=== PATIENT | male | born 2000 | race Caucasian/White ===

== ENCOUNTER 2018-06-08 06:05 | Day surgery (SDC) | payer BC ==
[~2018-06-08 06:05] MED LIST: CEFAZOLIN 2 GM/50 ML (PMX) 50 ML IVPB
[2018-06-08] MEDS ORDERED: DESFLURANE 15 MIN (07:00)
[2018-06-08] MEDS ORDERED: FENTAnyl 50 MCG/ML VIAL (07:28)
[2018-06-08] MEDS ORDERED: DIPHENHYDRAMINE 50 MG INJ IV (07:30)
[2018-06-08] MEDS ORDERED: FENTAnyl 50 MCG/ML VIAL IV ×2 (07:30)
[2018-06-08] MEDS ORDERED: MEPERIDINE 25 MG INJ IV (07:30)
[2018-06-08] MEDS ORDERED: METOCLOPRAMIDE 10 MG INJ IV (07:30)
[2018-06-08] MEDS ORDERED: ALBUTEROL 0.083% (NEB) 2.5 MG/3 ML AMP HHN (07:30)
[2018-06-08] MEDS ORDERED: HYDROmorphONE 1 MG/5 ML IV SYRINGE IV ×3 (07:30)
[2018-06-08] MEDS: BUPIVACAINE 0.5% (SDV) 30 ML INJ (08:13)
[2018-06-08] MEDS ORDERED: LIDOCAINE 100 MG SYRINGE (08:20)
[2018-06-08] MEDS ORDERED: NEOSTIGMINE 3 MG/3 ML SYRINGE (08:20)
[2018-06-08] MEDS ORDERED: GLYCOPYRROLATE 0.4 MG INJ (08:20)
[2018-06-08] MEDS ORDERED: ROCURONIUM 50 MG INJ (08:20)
[2018-06-08] MEDS ORDERED: PROPOFOL 20 ML (08:20)
[2018-06-08] MEDS ORDERED: SUCCINYLCHOLINE CHLORIDE 100 MG/5 ML SYG IV (08:20)
[2018-06-08] MEDS ORDERED: CEFAZOLIN 1 GM INJ (08:20)
[2018-06-08] MEDS ORDERED: BACITRACIN/POLYMYXIN 28.35 GM OINT TOP (08:27)
[2018-06-08] MEDS: NEOMYC/POLYMYX/BACIT 30 GM OINT (08:41)
[2018-06-08] MEDS: ONDANSETRON 4 MG INJ IV (09:38)
[2018-06-08] MEDS: HYDROCODONE/APAP (5/325) TAB PO (09:40)
== END 2018-06-08 10:31 | disposition home or self-care (01) ==
LOC: SDS 06:05
DX: N43.3 Hydrocele, unspecified (principal)
CPT/HCPCS: 55040; 88302